=== PATIENT | male | born 1995 | race Caucasian/White ===

== ENCOUNTER 2016-10-14 10:34 | Observation (INO) | payer OTHER ==
[~2016-10-14] VITALS: Ht 177.8 cm; Wt 83.7 kg
[2016-10-14] MEDS ORDERED: Dextrose 5% Lactated Ringer's 1,000 ML IV SCH (10:43)
[2016-10-14] MEDS ORDERED: Sodium Chloride LOK Flush 10 mL Syringe IVFLUSH PRN (10:45)
[2016-10-14] MEDS ORDERED: Acetaminophen IV 1,000 MG in IV Premix 1 EACH IV PRN (10:45)
[2016-10-14 10:55] VITALS: BP 116/70; PULSE 74; RESP 15; O2SAT 97
[2016-10-14] MEDS ORDERED: Rocuronium 10 mg/mL 5 mL Inj ONE ×2 (11:49)
[2016-10-14] MEDS ORDERED: fentaNYL-PF 50 mCg/mL 2 mL Inj ONE (11:49)
[2016-10-14] MEDS ORDERED: Dexamethasone 4 mg/mL Inj ONE ×2 (11:49)
[2016-10-14] MEDS ORDERED: Propofol 10,000 mCg/mL 20 mL Inj ONE ×2 (11:49)
[2016-10-14] MEDS ORDERED: Ondansetron 2 mg/mL 2 mL Inj ONE ×2 (11:49)
--- NOTE | 2016-10-14 12:34 | HP ---
[address] [address] HISTORY AND PHYSICAL PATIENT: CHUCKIE UPTON : 1995 MR#: [id number] ADMIT: 10/14/2016 JOB ID: [id number] CHIEF COMPLAINT: A 21-year-old gentleman with appendicitis, seen in consultation at the request of Mario Rowan DO. HISTORY OF PRESENT ILLNESS: The patient is a 21-year-old gentleman who noticed some mid abdominal pain 2-3 days ago. It has progressively gotten worse to become more focal in the right lower quadrant, with pain worse on movement. He has not had any nausea or vomiting, and is still able to keep food down. He last had some crackers around 8 o'clock this morning. He presented to urgent care, where he had a CBC drawn, and was sent for an abdominal ultrasound, with suspicion of appendicitis. I was asked to see him in consultation after the diagnosis. OTHER MEDICAL PROBLEMS: None. PRIOR OPERATIONS: None. FAMILY HISTORY: No family history of inflammatory bowel disease. SOCIAL HISTORY: He has been smoking for the last 15 years. 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 MEDICATIONS: No medications at home. ALLERGIES: SULFA. INVESTIGATIONS: Labs from today, WBC 7.7, hemoglobin 15.5, no left shift on the white blood cell count. Ultrasound shows an 11-12 mm appendix with wall thickness of 3 mm. No evidence of free fluid or fecalith seen. PHYSICAL EXAMINATION: A 21-year-old gentleman in no acute distress. Temperature 36.8, pulse 74, respiratory rate 15, blood pressure 116/70, saturating 97% on room air. Eyes: Normal pupils, conjunctivae. Ears, nose, and throat: Normal external appearance. Neck: No lymphadenopathy or jugular venous distention. Respiratory: Normal effort, clear to auscultation. Cardiovascular: Regular rate and rhythm. Gastrointestinal: Focally tender to palpation in the right lower quadrant. Genitourinary: Deferred. Musculoskeletal: Normal strength in extremities. Neurologic: No gross deficits. Psych: Alert, appropriate. ASSESSMENT AND PLAN: Acute appendicitis. Discussed the pathophysiology and treatment rationale for appendicitis, and recommended IV antibiotics and laparoscopic appendectomy. He is reluctant to go forward with the operation. So, at this point, we are going to put him on antibiotics and because of his n.p.o. status I am going to give him some time. If he strongly wants to pursue antibiotic treatment, I will actually get a CT scan with contrast to make sure there is no fecalith or other signs that would increase the chances of complications. At this point, we are going to put him on antibiotics and watch him as an inpatient.
[2016-10-14] MEDS: Piperacillin-Tazo 3.375 Gm Inj 3.375 GM in Dextrose 5% Minibag Plus 50 ML IV SCH ×2 (13:25→17:10)
[2016-10-14 14:32] VITALS: BP 117/71; PULSE 62; RESP 15; O2SAT 97
--- NOTE | 2016-10-14 15:39 | NUR ---
Admit note- Received patient as a direct admit from Urgent Care. Alert and oriented. Denies pain at this time. Instructed patient NPO status for possible surgery. Oriented to call light, room, etc.
--- NOTE | 2016-10-14 16:15 | PCM.HPANE ---
Patient Data Surgeon Admitting Provider:Amanda Amador MD Attending Provider:Amanda Amador MD Primary Care Physician:Dawson Other Provider: Reason for Visit Appendicitis Ht/WT & BMI Height (Feet): 5 Height (Inches): 10.00 Weight (Kilograms): 83.700 Body Mass Index .00 Allergies Coded Allergies: No Known Allergies (Unverified , 10/14/16) Diabetes History Hx Diabetes?: No MRSA MRSA: No Medications Hypertension Medication: No Home Meds Incl Beta Yeny: No History History of ENT Problems?: No Hx of Heart Problems?: No Other Cardiac History: Denies chest pain Hx of Respiratory Problem?: No Other History/Comment Smokes 1/2 pack per day Hx Neurologic Problems?: No Hx of GI Problems?: No Hx of Problems?: No Male Hx: Denies:: Prostate Problems Scrotal Mass Testicular Surgery Hx Musculoskeletal Problems?: No Hx of Psycho/Social Problems?: No Hx Any Other Health Problems?: No History Blood Transfusions: Positive for:: Accept Blood Products? Denies:: Blood Transfuse Reaction Blood Transfusions Hx Alcohol Use: Yes (occas.)Hx Substance Use: NoHave You Smoked inLast 12 mo: YesApprox How Many Cigarettes/day: 1 pack Stop/Bang Treated for Sleep Apnea?: No Do You Have a CPAP Machine?: No S-Snoring: Do You Snore Loudly: No T-Tired: feel tired, fatigued: No O-Obsered: Observed not breath: No P-Blood Pressure: treated: No B- Body Mass Index > 35 kg/m2: No A- Age over 50: No N- Neck Large Circumference: No G- Gender Male: Yes DEANDRA Total Score: 1 DEANDRA Risk Assessment: Low Risk, <3 Yes Risk Assessment Category Category 1A: Patient has history of documented sleep apnea, and HAS NOT received any narcotic, sedative or anesthesia administration during this stay. Category 1B: Patient has history of documented sleep apnea, and HAS received any narcotic , sedative or anesthesia administration during this stay Category 2: Patient has SUSPECTED Obstructive Sleep Apnea, and HAS received any narcotic , sedative or anesthesia administration during this stay. Category 3: Patient has SUSPECTED Obstructive Sleep Apnea and HAS NOT received narcotic, sedative or anesthesia administration during this stay. Category 4: Outpatient in Procedural Areas with known sleep apnea or who screen positive for High Risk via the STOP/BANG questionnaire. Exam Exam Vital Signs Vital Signs Date Time Temp Pulse Resp B/P Pulse Ox O2 Delivery O2 Flow Rate FiO2 10/14/16 14:32 36.9 62 15 117/71 97 Room Air 10/14/16 10:55 36.8 74 15 116/70 97 Room Air General Appearance: Alert, Oriented X3, Cooperative, No Acute Distress HEENT/AIRWAY: MP 1 Lungs: Clear to Auscultation, Normal Air Movement Heart: Exam Unremarkable, Regular Rate/Rhythm, No Murmurs/Rubs/Gallops Meds/Labs/Diagnostics Admission Meds Current Medications Dextrose/Lactated Ringer's 1,000 ml @ 125 mls/hr Q8H IV Last administered on 13:24; Start 10/14/16 at 10:43 Piperacillin Sod/ Tazobactam Sod/ Dextrose/Water (Zosyn 3.375 Gm Inj/D5W Minibag Plus) 50 ml @ 100 mls/hr Q8H IV Last administered on 10/14/16 13:25; Start 10/14/16 at 10:45 Labs Test 10/14/16 11:10 Hold Urine Received (Received) Plan Impression Patient chart reviewed, patient interviewed and anesthestic plan with risks, benefits, and alternatives discussed, and informed consent obtained. ASA Physical Status: ASA2 Mod Systemic Disease Anesthetic Plan: GA Bene/Risks/Altern/Consents: Yes HP Complete Prior to Induction: Yes Gregory Casey MD Oct 14, 2016 16:15
[2016-10-14] MEDS ORDERED: Lactated Ringer's 1,000 ML IV ONE ×2 (16:24→19:00)
[2016-10-14] MEDS ORDERED: Bupivacaine-MPF 0.5% 30 mL Inj INFILTRATE ONE (16:24)
[2016-10-14] MEDS ORDERED: Lactated Ringer's 1,000 ML IV SCH (17:28)
[2016-10-14] MEDS ORDERED: Lactated Ringer's 500 ML IV PRN (17:28)
[2016-10-14] MEDS ORDERED: MetoCLOpramide 5 mg/mL 2 mL Inj IVPUSH PRN (17:30)
[2016-10-14] MEDS ORDERED: Dexamethasone 4 mg/mL Inj IVPUSH PRN (17:30)
[2016-10-14] MEDS ORDERED: EPHEDrine Sulfate 50 mg/mL Inj IVPUSH PRN (17:30)
[2016-10-14] MEDS ORDERED: HYDROmorphone 1 mg/mL Inj IVPUSH PRN (17:30)
[2016-10-14] MEDS ORDERED: hydrALAZINE 20 mg/mL Inj IVPUSH PRN (17:30)
[2016-10-14] MEDS ORDERED: Phenylephrine 10,000 mCg/mL Inj IVPUSH PRN (17:30)
[2016-10-14] MEDS ORDERED: fentaNYL-PF 50 mCg/mL 2 mL Inj IVPUSH PRN (17:30)
[2016-10-14] MEDS ORDERED: Atropine 0.4 mg/mL Inj IVPUSH PRN (17:30)
[2016-10-14] MEDS ORDERED: Ondansetron 2 mg/mL 2 mL Inj IVPUSH PRN (17:30)
[2016-10-14] MEDS ORDERED: Labetalol 5 mg/mL 4 mL Inj IV PRN (17:30)
[2016-10-14 18:17] VITALS: BP 118/65; PULSE 78; RESP 14; O2SAT 99
--- NOTE | 2016-10-14 18:22 | PCM.ANEP1 ---
Post Anesthesia Phase 1 PACU Phase 1 Assessment Vital Signs Vital Signs Date Time Temp Pulse Resp B/P Pulse Ox O2 Delivery O2 Flow Rate FiO2 10/14/16 14:32 36.9 62 15 117/71 97 Room Air 10/14/16 10:55 36.8 74 15 116/70 97 Room Air Anesthetic Administered: GA Level of Alertness: Awake, talking BARRIOS's with Equal Strength: Yes Pain: No Pain Scale Score: 1 Nausea or Vomiting: No Oxygen Delivery: Simple Mask Lungs: Clear to Auscultation, Normal Air Movement Dermatome Level: Full Sensation Gregory Casey MD Oct 14, 2016 18:22
--- NOTE | 2016-10-14 18:29 | PCM.ANEP2 ---
Post Anesthesia Evaluation ASA/CMS Post Anesthesia VS in Patient's Normal Range?: Yes Resp Stable; Airway Patent?: Yes CV Function & Hydration Stable: Yes Mental Status Recovered?: Yes Pain control Satisfactory?: Yes N/V Control Satisfactory?: Yes Gregory Casey MD Oct 14, 2016 18:29
[2016-10-14 18:31] VITALS: BP 108/55; PULSE 72; RESP 16; O2SAT 98
--- NOTE | 2016-10-14 18:48 | PCM.SURGPO ---
Immediate Operative Note Date of Surgery: Oct 14, 2016 Pre Operative Diagnosis Appendicitis Post Operative Diagnosis Appendicitis Procedure Laparoscopic Appendectomy Surgeon and Organisation And Methods Analyst Surgeon: Amanda Amador MD Assistants: Yi Leal MS3 Findings Acute Non-perforated Appendicitis Complications There were no periprocedural complications identified. Surgical Specimen Removed: Yes Specimen sent to Pathology: Yes Anesthetic Administered: GA Grafts, Implants: None Output, Estimated Blood Loss: 5 Blood Admin during surgery: No Attending Statement Hemodialysis Rn listed was medically necessary for the successful completion of the case Amanda Amador MD Oct 14, 2016 18:48
[2016-10-14 18:54] VITALS: BP 124/74; PULSE 69; RESP 16; O2SAT 97
--- NOTE | 2016-10-14 19:27 | OP ---
[address] [address] OPERATIVE REPORT PATIENT: CHUCKIE UPTON : 1995 MR#: [id number] ADMIT: 10/14/2016 JOB ID: [id number] DATE OF SURGERY: 10/14/2016 PREOPERATIVE DIAGNOSIS(ES): Acute appendicitis. POSTOPERATIVE DIAGNOSIS(ES): Acute nonperforated appendicitis. PROCEDURE PERFORMED: Laparoscopic appendectomy. SURGEON: Amanda Amador MD. FACILITIES ADMINISTRATOR: JOHN Fernandez. COMPLICATIONS: None. CONDITION OF THE PATIENT: Stable. INDICATIONS: The patient is a 21-year-old gentleman who noticed some mild abdominal pain 2-3 days ago which progressively got worse, making him present to the urgent care, where he was diagnosed with appendicitis after getting a CBC and an ultrasound, prompting surgical consultation. He was admitted to the hospital with IV antibiotics, and after discussing the risks, benefits, and alternatives, he is here today for laparoscopic appendectomy. PROCEDURE DETAILS: He was placed in supine position. Underwent smooth induction of general anesthesia. A Garcia catheter was placed. Abdomen was prepped and draped in the usual sterile fashion. Surgical time-out was undertaken using safety checklist, and all were in agreement. I entered the abdomen using open Evelina technique through an infraumbilical incision, obtained pneumoperitoneum, and then placed another 5 mm port in the suprapubic location and upsized the umbilical port to a 12. I then placed another 5 mm port in the left lower quadrant and mobilized the appendix away from the retroperitoneum. It was obviously inflamed. I then controlled the mesoappendix with electrocautery, making sure I had good hemostasis with the appendiceal artery perfectly controlled with electrocautery. After mobilizing the appendix all the way to the base of the cecum. I controlled the appendiceal stump with a 45 mm Endo-BEATRICE stapler, placed the appendix in an EndoCatch bag. I then suctioned out all blood and fluid from the right lower quadrant and the pelvis, and after ensuring good hemostasis, removed the appendix through the supraumbilical port site. Pneumoperitoneum was evacuated and ports were removed and umbilical port site fascia was closed with [id number] 0-Vicryl suture. Skin was reapproximated with 4-0 Monocryl. Steri-Strips and sterile dressing were applied. Patient was recovered from anesthesia and was taken to the recovery room in stable condition.
[2016-10-14 19:50] VITALS: BP 120/73; PULSE 71; RESP 18; O2SAT 98
[2016-10-15 00:10] VITALS: BP 105/61; PULSE 68; RESP 20; O2SAT 97
--- NOTE | 2016-10-15 04:36 | NUR ---
pain: pt. back to floor post-op 1924, pain well controlled with po tylenol and ibuprofen. pt. has tolerated po w/o nausea.
[2016-10-15 04:48] VITALS: BP 100/51; PULSE 72; RESP 20; O2SAT 98
--- NOTE | 2016-10-15 05:01 | NUR ---
/pain; pt. c/o pain, unable to urinate, not due for tylenol or ibuprofen, pt. given morphine, "made pt. feel weird", will reassess pain and ability to urinate. Addendum: 10/15/16 at 0613 by LEIDA VALDEZ RN pt. was able to void 450cc urine, pain has improved, pt. ambulated in the maher.
[2016-10-15] MEDS ORDERED: Ibuprofen PO (09:00)
[2016-10-15] MEDS ORDERED: Acetaminophen PO (09:00)
[2016-10-15] MEDS ORDERED: NICO1PAT5 TOPICAL (09:00)
--- NOTE | 2016-10-15 09:02 | PCM.DISURG ---
Surgical Discharge Instruction Date of Service Oct 15, 2016 Dates of Hospitalization Date of Hospital Admission Oct 14, 2016 at 10:35 Providers Admitting Physician: Amanda Amador MD Primary Care Physician: Nopcp Attending Physician: Amanda Amador MD Discharge Diagnosis Post Operative diagnosis Appendicitis s/p Laparoscopic Appendectomy Diet Discharge Diet: No restrictions Activity Discharge Activity-General: Be up and about, No lifting >15 pounds for 2 weeks Dressing and Incisional Care Dressing Care: Remove outer dressing after 24 hrs Hygiene: May shower Follow Up Plan Mid-level Provider (F9): Ashley Morejon PAC Follow-up appointment: Weeks (2) Call your provider for: Fever, Chills, Increasing abdominal pain, Nausea, Vomiting, Wound redness, Increasing wound pain, Warmth to touch, Discharge @ incision, pus discharge Amanda Amador MD Oct 15, 2016 09:02
[2016-10-15 09:18] VITALS: BP 113/67; PULSE 58; RESP 16; O2SAT 98
--- NOTE | 2016-10-15 09:49 | NUR ---
Social Work-assessment/discharge: Data:EMR reviewed. Pt is a 21 y/o male who was admitted on 10/14/16 for appendicitis per H&P. Pt's insurance is [employer] and PCP is not listed. EMR Reviewed. Pt's readmission score is 0. SW met with pt at bedside, SW role explained. Pt is alert and oriented x3. Pt resides at home where he remains independent with ADLS. Pt continues to work and has been been up independent in his room. SW discussed DPOA/advanced directive, pt states he has not done this paperwork and is not interested in any information. SW discussed lack of PCP, pt declining resources stating he is working on this. Pt confirms that his mother is providing transport home today. SW provided phone number and plan on white board in room. No discharge needs identified. All updated and agreeable to plan. Assessment:pt who is independent at baseline. Plan:Pt to discharge home today via POV. No discharge needs identified. All updated and agreeable to plan. JUDIT Martinez
--- NOTE | 2016-10-15 11:41 | NUR ---
DISCHARGE Patient discharged at 1135, left with mother who will drive him home. Patient denies nausea, shortness of breath, and chest pain. 6/10 abdomen pain given 400mg Motrin. Medications reviewed and signs of infection, patient verbalized understanding. Care notes for appendectomy provided as well as follow up instructions and Dr Amador office number for two week follow up. MD note for work given, and patient instructed to not lift more the 15 lbs for two weeks. IV catheter removed intact, belongings patient has taken home, and stop smoking education done.
--- NOTE | 2016-10-15 14:48 | DIS ---
[address] [address] DISCHARGE SUMMARY PATIENT: CHUCKIE UPTON : 1995 MR#: [id number] ADMIT: 10/14/2016 JOB ID: [id number] DIS: 10/15/2016 DIAGNOSIS: Acute appendicitis. PROCEDURE PERFORMED: Laparoscopic appendectomy. HISTORY OF PRESENT ILLNESS: The patient is a 21-year-old gentleman who presented to Urgent Care with three days of abdominal pain which moved to the right lower quadrant. Ultrasound was consistent with appendicitis and I was consulted for management. HOSPITAL COURSE: I admitted him with antibiotics, and after discussing the risks, benefits, and alternatives, performed a laparoscopic appendectomy on October 14, 2016. He tolerated the procedure well and his postoperative course was uncomplicated and his pain was controlled with just Tylenol and ibuprofen. On postoperative day two, that is October 15, 2016, his abdomen was soft, and his incisions looked good with dressings intact. He was discharged home, tolerating a regular diet. DISCHARGE MEDICATIONS: Tylenol, ibuprofen, and nicotine patch. DISCHARGE INSTRUCTIONS: I asked the patient to contact me if he has any fevers or problems with nausea or vomiting or increased abdominal pain. I asked him to remove the Band-Aids and shower. I asked him to stay away from heavy lifting for a month.
--- NOTE | 2016-10-18 11:25 | PATH ---
SURGICAL PATHOLOGY Attending Physician:Amanda Amador MD CASE STATUS: Signed Out PATIENT NAME: CHUCKIE UPTON PID: [id number] : 1995 DATE COLLECTED:10/14/2016 00:00 SPECIMEN: Appendix CLINICAL HISTORY: APPENDICITIS 1). APPENDIX FINAL DIAGNOSIS: 1.APPENDIX: ACUTE APPENDICITIS. ICD10 CODE K35.80 GROSS DESCRIPTION: The specimen is received in one formalin filled container labeled with the patient's name, sublabeled "appendix" and consists of one cylindrical carr appendix measuring 5.3 x 1.4 x 1.4 CM. The serosal surface is light carr brown, smooth and glistening. There is a small amount of attached fatty tissue. Sectioning reveals the wall to be thickened to approximately 0.3-0.4 CM. The lumen contains a light wagner semisolid material. Babysitter sections are submitted in one cassette. 10/16/2016 DAC MICRO DESCRIPTION: See diagnosis. ICD-9 CODES: CPT CODES: 1: 66170 Electronically Signed Out Adin Braahona MD [facility] [address], [place] [address] Technical component performed at [facility], [address] [place] [address] Ave[address], [place], [address]
== END 2016-10-15 11:50 | disposition home or self-care (01) ==
LOC: OSC 10:35
PROVIDERS: ADMIT Student in an Organized Health Care Education/Training Program; ATTEND Student in an Organized Health Care Education/Training Program
PROC: 0DTJ4ZZ Resection of Appendix, Percutaneous Endoscopic Approach (ICD-10-PCS; principal; 2016-10-14 16:15)
DX: K35.80 Unspecified acute appendicitis (principal); F17.200 Nicotine dependence, unspecified, uncomplicated
CPT/HCPCS: 44970; 96365; 96375; G0378; G0379; J0131; J1100; J2250; J2270; J2405; J2543; J3010; J7120